=== PATIENT | female | born 1975 | race Caucasian/White ===

== ENCOUNTER → 2016-05-11 | Outpatient (CLI) | payer BC ==
--- NOTE | 2016-05-11 20:59 | DI ---
PELVIC ULTRASOUND, 05/11/2016 2:56 PM Clinical History: Abnormal vaginal bleeding. Previous Exam: None at this facility. Technique: Transabdominal and transvaginal scans are performed. The uterus measures approximately 35 x 40 x 70 mm. The central uterine stripe is 10 mm thick. There i s a 2 mm hypoechoic lesion at the interface between the endometrium and myometrium of uncertain origi n and significance. The right ovary has a 15 mm cystic lesion that appears to be superficial to the o vary and this may represent a paraovarian cyst rather than a true ovarian cyst. The right and left ov manny are otherwise unremarkable. There are no fluid collections or masses. Readin. There is a 15 mm cyst in proximity to the right ovary. This may represent a paraovarian cyst rath er than a true ovarian cyst. The left ovary is normal. 2. There is a 2 mm hypoechoic lesion that is at the interface between the endometrium and the myomet rium in the exact etiology and significance is uncertain. The uterus is otherwise normal.
== END ==
LOC: US 14:51
PROVIDERS: ATTEND Obstetrics & Gynecology Gynecology
DX: N93.9 Abnormal uterine and vaginal bleeding, unspecified (principal); N83.291 Other ovarian cyst, right side
CPT/HCPCS: 76830

== ENCOUNTER → 2016-08-24 | Outpatient (CLI) | payer BC ==
[2016-08-24 15:32] LABS: BASOPHILS # (AUTO) 0.04 10*3/UL; BASOPHILS % (AUTO) 0.5 % (0-1); EOSINOPHILS # (AUTO) 0.06 10*3/UL; EOSINOPHILS % (AUTO) 0.8 % (0-8); HEMATOCRIT 41.2 % (37.0-47.0); HEMOGLOBIN 14.6 g/dL (12.0-16.0); LYMPHOCYTES # (AUTO) 1.45 10*3/uL; MEAN CORPUSCULAR HGB CONC 35.4 g/dL (33-37); MEAN CORPUSCULAR VOLUME 90.4 FL (81-99); MEAN PLATELET VOLUME 9.8 FL (7.4-12.2); MONOCYTES # (AUTO) 0.61 10*3/UL (0.3-0.8); MONOCYTES % (AUTO) 8.3 % (5-15); NEUTROPHILS # (AUTO) 5.14 10*3/UL; NEUTROPHILS % (AUTO) 70.5 % (50-80); RED BLOOD COUNT 4.56 10^6/uL (4.20-5.40)
[2016-08-24 15:37] LABS: PLATELET MORPHOLOGY COMMENT NORMAL MORPHOLOGY (NORM); RBC MORPHOLOGY COMMENT NORMAL MORPHOLOGY (NORM); WBC MORPHOLOGY COMMENT NORMAL MORPHOLOGY (NORM)
[2016-08-24 15:48] LABS: BLOOD UREA NITROGEN 13 mg/dL (7-22); BUN/CREATININE RATIO 18.57 (6-20); CALCIUM 9.1 mg/dL (8.7-10.7); EST GLOMERULAR FILTRATION > 60 (>60 ml/min/1.73m(2)); SERUM ALBUMIN 4.3 g/dL (3.5-4.8)
== END ==
LOC: LAB 15:17
PROVIDERS: ATTEND Internal Medicine
DX: C18.5 Malignant neoplasm of splenic flexure (principal)
CPT/HCPCS: 36415; 80053; 82378; 85025